=== PATIENT | female | born 1995 | race Caucasian/White ===

== ENCOUNTER 2016-09-23 09:07 | Emergency (ER) | payer OTHER ==
[~2016-09-23] VITALS: Ht 152.4 cm; Wt 55.0 kg
[~2016-09-23 09:07] MED LIST: FLAG500T PO
[2016-09-23 09:09] VITALS: BP 120/70; PULSE 91; RESP 17; TEMP 97.9; O2SAT 99
[2016-09-23] MEDS ORDERED: SODIUM CHLOR 0.9% 1000 ML INJ 1,000 ML IV ONE (09:30)
[2016-09-23] MEDS ORDERED: KETOROLAC TROMETHAMINE 30 MG/ML (IVP) VIAL IV PUSH ONE (09:30)
--- NOTE | 2016-09-23 10:26 | PD ---
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 She says it is severe pain that goes across her lower abdomen. She says she has had her menstrual period since Tuesday. She had some cramping at the beginning of her period, which is normal but started again last night. She says she has been told that she has ovarian cysts in the past. She denies nausea or vomiting. She denies dysuria. She denies any fever or chills. PFSH Past Medical History ADHD: No Bipolar Disorder: Yes Anxiety: Yes Depression: Yes Cancer: No Cardiovascular Problems: No Diabetes: No Diminished Hearing: No Psychiatric: Yes (DEPRESSION) Immunizations Current: No Migraines: Yes (IN THE PAST) Seizures: No Thyroid Disease: No Ulcer: No Tetanus Vaccination: < 5 Years Influenza Vaccination: No ?: Unknown LMP: 09/18/16 : 0 Para: 0 Miscarriage: 0 : 0 Ovarian Cysts: Yes Past Surgical History Surgical History: No Previous Surgery Social History Alcohol Use: Yes (OCC) Tobacco Use: No Substance Use: Yes (MARIJUANA) Allergies-Medications (Allergen,Severity, Reaction): Coded Allergies: No Known Allergies (Unverified , 09/23/16) Reported Meds & Prescriptions Reported Meds & Active Scripts Active No Active Prescriptions or Reported Medications Review of Systems Except as stated in HPI: all other systems reviewed are Neg General / Constitutional: No: Fever, Chills Cardiovascular: No: Chest Pain or Discomfort Respiratory: No: Shortness of Breath Gastrointestinal: Positive: Abdominal Pain, No: Nausea, Vomiting Genitourinary: No: Dysuria, Discharge Musculoskeletal: No: Myalgias Skin: No Rash, No Change in Pigmentation Neurologic: No: Weakness, Dizziness Physical Exam Narrative GENERAL: Awake and alert, in no acute distress. SKIN: Focused skin assessment warm/dry. HEAD: Atraumatic. Normocephalic. EYES: Pupils equal and round. No scleral icterus. ENT: Mucous membranes pink and moist. NECK: Trachea midline. No JVD. CARDIOVASCULAR: Regular rate and rhythm. No murmur appreciated. RESPIRATORY: No accessory muscle use. Clear to auscultation. Breath sounds equal bilaterally. GASTROINTESTINAL: Abdomen soft, nondistended. Tender to palpation across lower abdomen. No rebound or guarding. No CVA tenderness. : Performed in presence of female nurse, Radha. Scant yellowish discharge/ brown blood. Cervix without lesions or masses. No CMT or adnexal tenderness. MUSCULOSKELETAL: No obvious deformities. No clubbing. No cyanosis. No edema. NEUROLOGICAL: Awake and alert. No obvious cranial nerve deficits. Motor grossly within normal limits. Normal speech. PSYCHIATRIC: Appropriate mood and affect; insight and judgment normal. Data Data Last Documented VS Vital Signs Date Time Temp Pulse Resp B/P Pulse Ox O2 Delivery O2 Flow Rate FiO2 09/23/16 09:09 97.9 91 17 120/70 99 Orders Complete Blood Count With Diff (09/23/16 09:29) Comprehensive Metabolic Panel (09/23/16 09:29) Urinalysis - C+S If Indicated (09/23/16 09:29) Ed Urine Pregnancytest Poc (09/23/16 09:29) Sodium Chlor 0.9% 1000 Ml Inj (Ns 1000 M (09/23/16 09:30) Ketorolac Inj (Toradol Inj) (09/23/16 09:30) Iv Access Insert/Monitor (09/23/16 09:29) Wet Prep Profile (09/23/16 10:23) Gc And Chlamydia Pcr (09/23/16 10:23) Us Pelvis Comp W Dop Transvag (09/23/16 ) Ondansetron Odt (Zofran Odt) (09/23/16 12:00) Labs Laboratory Tests Test 09/23/16 09/23/16 10:00 10:30 White Blood Count 5.5 TH/MM3 Red Blood Count 4.37 MIL/MM3 Hemoglobin 13.4 GM/DL Hematocrit 39.8 % Mean Corpuscular Volume 90.9 FL Mean Corpuscular Hemoglobin 30.7 PG Mean Corpuscular Hemoglobin 33.8 % Concent Red Cell Distribution Width 12.9 % Platelet Count 199 TH/MM3 Mean Platelet Volume 9.1 FL Neutrophils (%) (Auto) 70.4 % Lymphocytes (%) (Auto) 21.6 % Monocytes (%) (Auto) 5.9 % Eosinophils (%) (Auto) 1.1 % Basophils (%) (Auto) 1.0 % Neutrophils # (Auto) 3.8 TH/MM3 Lymphocytes # (Auto) 1.2 TH/MM3 Monocytes # (Auto) 0.3 TH/MM3 Eosinophils # (Auto) 0.1 TH/MM3 Basophils # (Auto) 0.1 TH/MM3 CBC Comment DIFF FINAL Differential Comment Urine Color YELLOW Urine Turbidity CLEAR Urine pH 5.5 Urine Specific [place] 1.030 Urine Protein NEG mg/dL Urine Glucose (UA) NEG mg/dL Urine Ketones NEG mg/dL Urine Occult Blood MOD Urine Nitrite NEG Urine Bilirubin NEG Urine Urobilinogen LESS THAN 2.0 MG/DL Urine Leukocyte Esterase NEG Urine RBC LESS THAN 1 /hpf Urine WBC LESS THAN 1 /hpf Urine Squamous Epithelial 2 /hpf Cells Microscopic Urinalysis Comment CULT NOT INDICATED Sodium Level 141 MEQ/L Potassium Level 3.9 MEQ/L Chloride Level 108 MEQ/L Carbon Dioxide Level 26.2 MEQ/L Anion Gap 7 MEQ/L Blood Urea Nitrogen 25 MG/DL Creatinine 0.68 MG/DL Estimat Glomerular Filtration 109 ML/MIN Rate Random Glucose 96 MG/DL Calcium Level 8.8 MG/DL Total Bilirubin 0.3 MG/DL Aspartate Amino Transf 20 U/L (AST/SGOT) Alanine Aminotransferase 27 U/L (ALT/SGPT) Alkaline Phosphatase 58 U/L Total Protein 7.1 GM/DL Albumin 3.8 GM/DL Clue Cells (Wet Prep) PRESENT Vaginal Trichomonas (Wet Prep) NONE SEEN Vaginal Yeast (Wet Prep) NONE SEEN MDM Medical Decision Making Medical Screen Exam Complete: Yes Emergency Medical Condition: Yes Medical Record Reviewed: Yes Differential Diagnosis UTI vs ovarian cyst vs menstrual cramp Narrative Course Patient is a 21-year-old female who comes in complaining of lower abdominal pain that started yesterday. Exam shows tenderness to the lower abdomen. IV established, labs sent. Labs show no acute abnormalities. Genital swab sent for wet prep shows clue cells. Swab sent for GC and chlamydia. Patient given IV fluids and Toradol. She reports her pain is improved, but she is feeling some nausea. Given Zofran. We'll discharge with prescription for Flagyl. Advised to avoid alcohol while taking this medication. Advised follow-up with gynecology. Advised to return to the ED as needed for any worsening symptoms. Pelvic ultrasound performed shows no acute abnormalities. Diagnosis Primary Impression: Bacterial vaginosis Patient Instructions: Bacterial Vaginosis (ED), General Instructions Additional Instructions: Do not drink alcohol while taking your antibiotic. Follow up with gynecology. Return to the ED as needed for any worsening symptoms. Scripts Metronidazole (Flagyl)500 Mg [id number] Mg PO BID 7 Days Ref 0 Prov:Slime Gu MD 09/23/16 Disposition: 01 DISCHARGE HOME Condition: Stable Slime Gu MD September 23, 2016 10:26
[2016-09-23 10:30] LABS: AUTOMATED NEUTROPHIL # 3.8 TH/MM3 (1.8-7.7); BASOPHIL # 0.1 TH/MM3 (0-0.2); EOSINOPHIL # 0.1 TH/MM3 (0-0.4); EOSINOPHIL % 1.1 % (0.0-4.0); HEMATOCRIT 39.8 % (35.0-46.0); HEMO FLAGS DIFF FINAL; LYMPH % 21.6 % (9.0-44.0); LYMPHOCYTE # 1.2 TH/MM3 (1.0-4.8); MEAN CELL VOLUME 90.9 FL (80.0-100.0); MEAN CORPUSCULAR HEMOGLOBIN 30.7 PG (27.0-34.0); MEAN CORPUSCULAR HGB CONC 33.8 % (32.0-36.0); MONO % 5.9 % (0.0-8.0); NEUT % 70.4 % (16.0-70.0); PLATELET COUNT 199 TH/MM3 (150-450); RED BLOOD COUNT 4.37 MIL/MM3 (4.00-5.30); RED CELL DISTRIBUTION WIDTH 12.9 % (11.6-17.2); WHITE BLOOD COUNT 5.5 TH/MM3 (4.0-11.0)
[2016-09-23 10:49] LABS: ANION GAP 7 MEQ/L (5-15); AST (GOT) 20 U/L (15-37); BICARBONATE 26.2 MEQ/L (21.0-32.0); BLOOD UREA NITROGEN 25 MG/DL (7-18); CHLORIDE 108 MEQ/L (98-107); GLOMERULAR FILTRATION RATE 109 ML/MIN (>89); POTASSIUM 3.9 MEQ/L (3.5-5.1); SODIUM (NA) 141 MEQ/L (136-145)
[2016-09-23 10:51] LABS: ALKALINE PHOSPHATASE 58 U/L (45-117); ALT (GPT) 27 U/L (10-53); TOTAL BILIRUBIN ADULT 0.3 MG/DL (0.2-1.0)
[2016-09-23 10:55] LABS: BLOOD, URINE MOD (NEG); GLUCOSE,URINE NEG (NEG); KETONE, URINE NEG (NEG); NITRITE,URINE NEG (NEG); PH, URINE 5.5 (5.0-8.5); SQUAMOUS EPITHELIAL CELL URINE 2 /hpf (0-5); URINE COLOR YELLOW (YELLW/STRAW)
[2016-09-23 11:03] LABS: COMMENT (UR) CULT NOT INDICATED; CULTURE IF INDICATED CULT NOT INDICATED
--- NOTE | 2016-09-23 11:47 | RADRPT ---
EXAM DATE/TIME: 09/23/2016 10:38 [facility] COMPARISON: No previous studies available for comparison. INDICATIONS : Pelvic pain. MEDICAL HISTORY : Pelvic pain. SURGICAL HISTORY : None. ENCOUNTER: Initial ACUITY: 4-6 days PAIN SCORE: 6/10 LOCATION: Bilateral pelvis MEASUREMENTS: UTERUS: 7.0 x 5.5 x 4.3 cm ENDOMETRIAL STRIPE: 5 mm RIGHT OVARY: 3.6 x 2.8 x 2.4 cm LEFT OVARY: 3.0 x 4.5 x 2.0 cm FINDINGS: UTERUS: The myometrium has homogeneous echotexture without mass. RIGHT OVARY: Several subcentimeter follicles. No dominant cyst. Blood flow demonstrated. LEFT OVARY: Several subcentimeter follicles. No dominant cyst. Blood flow demonstrated. MISCELLANEOUS: No free fluid. CONCLUSION: Normal pelvic ultrasound. Isaías Frankel MD on September 23, 2016 at 11:44 Board Certified Radiologist. This report was verified electronically.
[2016-09-23] MEDS ORDERED: METR-1 PO (11:56)
[2016-09-23] MEDS ORDERED: ONDANSETRON ODT 4 MG TAB PO ONE (12:00)
[2016-09-23 12:39] VITALS: BP 119/56
[2016-09-23 12:49] LABS: CHLAMYDIA PCR NOT DETECTED (NOT DETECT); NEISSERIA PCR NOT DETECTED (NOT DETECT)
== END 2016-09-23 12:40 | disposition home or self-care (01) ==
LOC: NEPD 09:07
DX: N76.0 Acute vaginitis (principal); R11.0 Nausea
CPT/HCPCS: 76830; 76856; 80053; 81001; 84703; 85025; 87210; 87491; 87591; 93975; 96374; 99284; J1885; J7030

== ENCOUNTER 2017-05-13 09:12 | Emergency (ER) | payer SELFPAY ==
[~2017-05-13] VITALS: Ht 152.4 cm; Wt 60.0 kg
[~2017-05-13 09:12] MED LIST changes: -FLAG500T PO; +METR-1 PO
[2017-05-13 09:13] VITALS: BP 102/64; PULSE 79; RESP 14; TEMP 97.9; O2SAT 98
--- NOTE | 2017-05-13 09:40 | PD ---
HPI Chief Complaint: Bite or Sting Time Seen by Provider: 09:27 Travel History International Travel<30 days: No Contact w/Intl Traveler<30days: No Traveled to known affect area: No History of Present Illness HPI 21-year-old female presents to emergency department complaining of lesions on her right forearm and left upper arm since this morning. Patient states that she thought she was bit by spider but did not actually see a spider or feel a bite. She is concerned today because it is tender over the area, worse with palpation. Nothing improves her discomfort and it is non radiating. Pt does not recall trauma to the areas. Patient denies fever, chills, chest pain, short of breath, nausea, vomiting, diarrhea. Denies pain anywhere else. Has no other complaints today. Denies medical problems or chronic medication use. PFSH Past Medical History ADHD: No Bipolar Disorder: Yes Anxiety: Yes Depression: Yes Cancer: No Cardiovascular Problems: No Diabetes: No Diminished Hearing: No Psychiatric: Yes (DEPRESSION) Immunizations Current: No Migraines: Yes (IN THE PAST) Seizures: No Thyroid Disease: No Ulcer: No Influenza Vaccination: No ?: Unknown LMP: 03/22/17 : 0 Para: 0 Miscarriage: 0 : 0 Ovarian Cysts: Yes Past Surgical History Surgical History: No Previous Surgery Other Surgery: No Social History Alcohol Use: Yes (OCC) Tobacco Use: No Substance Use: Yes (MARIJUANA) Allergies-Medications (Allergen,Severity, Reaction): Coded Allergies: No Known Allergies (Unverified Adverse Reaction, Unknown, 05/13/17) Reported Meds & Prescriptions Reported Meds & Active Scripts Active Flagyl (Metronidazole) 500 Mg Tab 500 Mg PO BID 7 Days Review of Systems Except as stated in HPI: all other systems reviewed are Neg Physical Exam Narrative GENERAL: WD, WN in NAD SKIN: Warm and dry. right forearm: round, 3cm area of ecchymosis without erythema or spread. non indurated, non fluctuant. mildly TTP left upper arm: round, 4cm area of ecchymosis without erythema or spread. non indurated, non fluctuant. Mildly TTP. HEAD: Normocephalic. EYES: No scleral icterus. No injection or drainage. NECK: Supple, trachea midline. No JVD or lymphadenopathy. CARDIOVASCULAR: Regular rate and rhythm without murmurs, gallops, or rubs. RESPIRATORY: Breath sounds equal bilaterally. No accessory muscle use. MUSCULOSKELETAL: No cyanosis, or edema. BACK: Nontender without obvious deformity. No CVA tenderness. Data Data Last Documented VS Vital Signs Date Time Temp Pulse Resp B/P (MAP) Pulse Ox O2 Delivery O2 Flow Rate FiO2 05/13/17 09:13 97.9 79 14 102/64 (77) 98 MDM Medical Decision Making Medical Screen Exam Complete: Yes Emergency Medical Condition: No Differential Diagnosis hematoma, cellulitis, insect bite, Narrative Course 21-year-old female presents to emergency department complaining of lesions on her right forearm and left upper arm since this morning. Patient states that she thought she was bit by spider but did not actually see a spider or feel a bite. She is concerned today because it is tender over the area, worse with palpation. Nothing improves her discomfort and it is non radiating. Pt does not recall trauma to the areas. Patient denies fever, chills, chest pain, short of breath, nausea, vomiting, diarrhea. Denies pain anywhere else. Has no other complaints today. Denies medical problems or chronic medication use. Vital Signs Stable. Physical exam findings consistent with small hematomas (bruises). There is no evidence for bites, cellulitis, abscess, coagulation, or erysipelas. Advised pt to use warm or cool compresses for the discomfort. A medical screening exam was performed: At the time of evaluation the presenting medical condition was determined not to be of an emergent nature. The patient was given the option of receiving additional care, but declined. Patient was given options for additional community resources from which to obtain care. The Patient Has Been advised to seek medical attention for their presenting complaint. The patient has been advised to return to the ER at any time if an emergent condition develops. Diagnosis Primary Impression: Encounter for medical screening examination Disposition: 01 DISCHARGE HOME Condition: Stable Maggi Hagen May 13, 2017 09:40
== END 2017-05-13 09:54 | disposition left against medical advice (07) ==
LOC: NEPD 09:12
DX: L98.9 Disorder of the skin and subcutaneous tissue, unspecified (principal)
CPT/HCPCS: 99281